=== PATIENT | female | born 1985 | race African-American/Black ===

== ENCOUNTER 2016-10-14 03:02 | Emergency (ER) | payer SELFPAY ==
[~2016-10-14] VITALS: Ht 170.2 cm; Wt 91.0 kg
[2016-10-14] MEDS ORDERED: BACITRACIN ZINC OINT UDPKT TOP NR (05:00)
[2016-10-14 05:22] VITALS: BP 138/68
== END 2016-10-14 05:31 | disposition home or self-care (01) ==
LOC: ER 03:02
DX: S60.452A Superficial foreign body of right middle finger, initial encounter (principal); R60.9 Edema, unspecified; X58.XXXA Exposure to other specified factors, initial encounter; Y93.89 Activity, other specified; Y92.018 Other place in single-family (private) house as the place of occurrence of the external cause
CPT/HCPCS: 99283; Z7610